=== PATIENT | male | born 1975 | race African-American/Black ===

== ENCOUNTER 2021-10-06 19:13 | Emergency (ER) | payer BC, OTHER ==
[2021-10-06 19:33] VITALS: BP 106/72; PULSE 113; TEMP 101.1; BMI 35.9
[2021-10-06] MEDS ORDERED: ACETAMINOPHEN 500 MG TABLET (FP) PO ONE (21:33)
[2021-10-06] MEDS ORDERED: SODIUM CHLORIDE 1,000 ML IV STA (21:33)
[2021-10-06] MEDS ORDERED: ACETAMINOPHEN 500 MG TABLET (FP) ONE (22:53)
[2021-10-06 22:55] LABS: BASO % 0.4 % (0-2.0); EOS % 1.5 % (0-4.5); HEMATOCRIT 41.2 % (35.4-49); LYMPH % 20.6 % (8-40); MCH 26.7 pg (25.7-33.7); MEAN CELL VOLUME 78.7 fl (80-96); MEAN PLT VOLUME 8.4 fl (7.5-11.1); MONO % 12.6 % (3.8-10.2); NEUT % 64.9 % (42.8-82.8); PLATELET COUNT 199 10^3/uL (134-434); RBC 5.24 M/mm3 (4.00-5.60); RDW 13.4 % (11.9-15.9)
[2021-10-06 23:21] LABS: CALCIUM 8.9 mg/dL (8.5-10.1)
[2021-10-06 23:22] LABS: BLOOD UREA NITROGEN 9.2 mg/dL (7-18)
[2021-10-06 23:25] LABS: CREATININE 1.3 mg/dL (0.55-1.3)
== END 2021-10-07 01:41 | disposition home or self-care (01) ==
LOC: JER 19:13
PROC: 3E0337Z Introduction of Electrolytic and Water Balance Substance into Peripheral Vein, Percutaneous Approach (ICD-10-PCS; principal; 2021-10-06)
DX: K52.9 Noninfective gastroenteritis and colitis, unspecified (principal)
CPT/HCPCS: 36415; 80048; 85025; 87045; 87046; 87177; 87186; 87209; 87324; 87449; 99284-25